=== PATIENT | male | born 1990 | race Caucasian/White ===

== ENCOUNTER → 2016-11-24 | Outpatient (CLI) | payer OTHER ==
--- NOTE | 2016-11-29 10:28 | SLEEPCENT ---
DATE OF PROCEDURE: 11/24/2016 ORDERED BY: Tova Saucedo Nocturnal polysomnography was performed for evaluation of sleep apnea syndrome symptoms and assessment of sleep physiology in this patient with a history of excessive somnolence and snoring. 7 hours and 15 minutes of data were reviewed. There were 419 minutes of sleep identified. Sleep latency was short at 2 minutes Rapid eye movement (REM) latency was short at 58 minutes. Sleep architecture was good. There were 5 REM periods identified. Overall sleep efficiency was 97.3%. The patient's EKG showed a sinus rhythm with an average heart rate of 52 beats per minute. Rate ranged 45-75. EEG showed mild coarsening of background. No focal events. Normal wave forms for awake and sleep were seen. There were only 17 respiratory events identified of 10 seconds in duration or greater for an apnea-hypopnea index within normal limits at 2.4. Patient did display snoring throughout the study. Respiratory related arousals occurred 2.1 times per hour when arousals from snoring were included. There was some limb activity but limb movement arousals were few and oxygen saturations were within normal limits. IMPRESSION: Normal nocturnal polysomnography with snoring.
== END ==
LOC: M SLEEP 19:45
PROVIDERS: ATTEND Nurse Practitioner Adult Health
DX: R06.83 Snoring (principal)

== ENCOUNTER 2017-01-27 19:51 | Outpatient (CLI) | payer OTHER ==
--- NOTE | 2017-01-30 08:22 | SLEEPMSLT ---
DATE OF PROCEDURE: 01/27/2017 REQUESTING PROVIDER: Tova Saucedo NP INTERPRETATION: Nocturnal polysomnography was performed followed by multiple sleep latency testing in this patient with a history of excessive somnolence. For the night study, 7 hours and 30 minutes of data were reviewed. 421 minutes of sleep were identified. Sleep latency on this occasion was 2.5 minutes, very short. Rapid eye movement (REM) latency was normal at 90 minutes. Sleep architecture was reasonably normal with minimal fragmentation. There were four REM periods appreciated. The patient's sleep efficiency was 96%. Electrocardiogram (EKG) showed a sinus rhythm with an average heart rate of 57 beats per minute. Electroencephalogram (EEG) showed normal waveforms for awake and sleep stages. There were only 8 respiratory events identified of 10 seconds in duration or greater for an apnea-hypopnea index of 1.1. Significant snoring was noted, but respiratory related arousals occurred only 1.4 times per hour. There was some limb activity, but arousals from limb events occurred only 2.4 times per hour and remaining measures of sleep physiology were normal. Nocturnal polysomnography was followed by multiple sleep latency testing. Nap opportunities were offered on four occasions at 2 hour intervals. Sleep was appreciated on four out of four nap opportunities with a mean sleep latency of 2.1 minutes. REM sleep was appreciated on two out of four nap opportunities. IMPRESSION: Normal nocturnal polysomnography with snoring, pathologic sleep latency at 2.1 minutes, and sleep onset REM periods demonstrated on two of four occasions. COMMENTS: The above findings are consistent with a clinical diagnosis of narcolepsy. Of note, toxicology screen performed during this test was not available at the time of this dictation to review.
[2017-02-03 15:56] LABS: SUMMARY SEE SEPARATE REPORT
== END 2017-01-28 14:30 | disposition home or self-care (01) ==
LOC: M SLEEP 19:51
PROVIDERS: ATTEND Nurse Practitioner Adult Health
DX: R40.0 Somnolence (principal)

== ENCOUNTER → 2017-02-18 | Outpatient (REF) | payer OTHER | LOC: M LAB REF 17:19 | PROVIDERS: ATTEND Nurse Practitioner Adult Health | DX: G47.419 Narcolepsy without cataplexy (principal) ==

== ENCOUNTER 2018-09-30 16:29 | Emergency (ER) | payer OTHER ==
[2018-09-30] MEDS: ONDANSETRON 4MG/2ML VIAL (J2405) IV (17:34)
[2018-09-30] MEDS: KETOROLAC 30 MG/ML VIAL (J1885) IV (17:34)
[2018-09-30 18:12] LABS: BASO % 0.4 % (0.0-1.0); EOS # 0.2 10^3/uL (0.0-0.50); EOS % 4.1 % (0.0-3.0); HEMATOCRIT 46.7 % (42.0-52.0); HEMOGLOBIN 16.3 g/dl (13.5-17.5); IMMATURE GRANULOCYTE % 0.2 % (0-3.0); LYMPH # 1.7 10^3/uL (1.5-4.5); LYMPH % 29.6 % (24.0-44.0); MEAN CORPUSCULAR HGB CONC 34.9 g/dl (32.0-36.5); MEAN CORPUSCULAR VOLUME 83.1 fl (80.0-96.0); MONO # 0.6 10^3/uL (0.0-0.8); MONO % 9.8 % (0.0-5.0); NEUTROPHILS # 3.1 10^3/uL (1.8-7.7); NEUTROPHILS % 55.9 % (36.0-66.0); RED BLOOD COUNT 5.62 10^6/uL (4.30-6.10); RED CELL DISTRIBUTION WIDTH 12.2 % (11.5-14.5); WHITE BLOOD COUNT 5.6 10^3/uL (4.0-10.0)
[2018-09-30 18:20] LABS: ANION GAP 7 MEQ/L (8-16); BLOOD UREA NITROGEN 14 MG/DL (7-18); CALCIUM LEVEL 8.7 MG/DL (8.5-10.1); CARBON DIOXIDE LEVEL 26 MEQ/L (21-32); CHLORIDE LEVEL 108 MEQ/L (98-107); CK-MB VALUE MASS < 1.0 NG/ML (<3.6); CPK CREATINE PHOSPHOKINASE 121 U/L (39-308); CREATININE FOR GFR 1.11 MG/DL (0.70-1.30); GLOMERULAR FILTRATION RATE > 60.0 (>60); GLUCOSE, FASTING 93 MG/DL (70-100); MB/CK RELATIVE INDEX 0.83 (< OR =4); POTASSIUM SERUM 3.8 MEQ/L (3.5-5.1); SODIUM LEVEL 141 MEQ/L (136-145); TROPONIN I < 0.02 NG/ML (< 0.10)
[2018-09-30 18:31] LABS: D-DIMER QUANT < 270 ng/ml (<500)
[2018-09-30 21:35] LABS: CK-MB VALUE MASS < 1.0 NG/ML (<3.6); CPK CREATINE PHOSPHOKINASE 96 U/L (39-308); MB/CK RELATIVE INDEX 1.04 (< OR =4); TROPONIN I < 0.02 NG/ML (< 0.10)
== END 2018-09-30 21:46 | disposition home or self-care (01) ==
LOC: M ED 16:29
DX: R07.9 Chest pain, unspecified (principal); Z91.89 Other specified personal risk factors, not elsewhere classified; Z91.010 Allergy to peanuts
CPT/HCPCS: J2405

== ENCOUNTER → 2018-11-21 | Outpatient (CLI) | payer OTHER ==
[2018-11-21 11:12] LABS: ALBUMIN 3.9 GM/DL (3.2-5.2); BILIRUBIN,DIRECT 0.2 MG/DL (0.0-0.2); BILIRUBIN,TOTAL 0.8 MG/DL (0.2-1.0)
[2018-11-24 08:06] LABS: IGASUB3 92.7 mg/dL (13.4-97.9)
== END ==
LOC: M LAB 10:13
PROVIDERS: ATTEND Internal Medicine Gastroenterology
DX: R19.7 Diarrhea, unspecified (principal)

== ENCOUNTER 2018-12-28 07:29 | Day surgery (SDC) | payer OTHER ==
[~2018-12-28] VITALS: Ht 180.3 cm; Wt 94.3 kg
[~2018-12-28 07:29] MED LIST: LIDOCAINE 2% INJ 100 MG/5 ML SDV (FOR ANES.) As Ordered ONE; OMEP40CA2 PO; PEPT262T2 PO; PROPOFOL 200 MG/20 ML VIAL As Ordered ONE; SIMETHICONE 40MG/0.6ML DROPS 30ML As Ordered ONE
[2018-12-28] MEDS ORDERED: PROPOFOL 200 MG/20 ML VIAL As Ordered ONE (07:49)
--- NOTE | 2018-12-28 08:08 | ROOR ---
Patient Name: Stef Ware Procedure Date: 12/28/2018 7:32 AM Date of : 1990 Age: 28 Room: [facility] Gender: Male Note Status: Finalized Procedure: Colonoscopy Indications: Chronic diarrhea Providers: Efren Charles MD Referring MD: James Lazar MD Requesting Provider: Medicines: Monitored Anesthesia Care Complications: No immediate complications. Procedure: Pre-Anesthesia Assessment: - Prior to the procedure, a History and Physical was performed, and patient medications and allergies were reviewed. The patient is competent. The risks and benefits of the procedure and the sedation options and risks were discussed with the patient. All questions were answered and informed consent was obtained. Patient identification and proposed procedure were verified by the physician, the nurse and the anesthesiologist in the procedure room. Respiratory Examination: clear to auscultation. Prophylactic Antibiotics: The patient does not require prophylactic antibiotics. Prior Anticoagulants: The patient has taken no previous anticoagulant or antiplatelet agents. ASA Grade Assessment: II - A patient with mild systemic disease. After reviewing the risks and benefits, the patient was deemed in satisfactory condition to undergo the procedure. The anesthesia plan was to use monitored anesthesia care (MAC). Immediately prior to administration of medications, the patient was re-assessed for adequacy to receive sedatives. The heart rate, respiratory rate, oxygen saturations, blood pressure, adequacy of pulmonary ventilation, and response to care were monitored throughout the procedure. The physical status of the patient was re-assessed after the procedure. The Colonoscope was introduced through the anus and advanced to the terminal ileum, with identification of the appendiceal orifice and IC valve. The colonoscopy was performed without difficulty. The patient tolerated the procedure well. The quality of the bowel preparation was good. The terminal ileum, ileocecal valve, appendiceal orifice, and rectum were photographed. Scope insertion time was 4 minutes. Scope withdrawal time was 10 minutes. The total duration of the procedure was 14 minutes. Findings: The perianal and digital rectal examinations were normal. The terminal ileum appeared normal. Multiple small and large-mouthed diverticula were found from sigmoid to descending colon. There was no evidence of diverticular bleeding. Normal mucosa was found from descending colon to cecum. Biopsies for histology were taken with a cold forceps from the right colon, left colon and transverse colon for evaluation of microscopic colitis. Verification of patient identification for the specimen was done by the physician and nurse using the patient's name, date and medical record number. Estimated blood loss was minimal. Diffuse mild inflammation characterized by erythema, granularity and loss of vascularity was found in the recto-sigmoid colon. Biopsies were taken with a cold forceps for histology. The retroflexed view of the distal rectum and anal verge was normal and showed no anal or rectal abnormalities. Impression: - The examined portion of the ileum was normal. - Moderate diverticulosis from sigmoid to descending colon. There was no evidence of diverticular bleeding. - Normal mucosa from descending to cecum. Biopsied. - Diffuse mild inflammation was found in the recto-sigmoid colon secondary to colitis. Biopsied. - The distal rectum and anal verge are normal on retroflexion view. Recommendation: - Patient has a contact number available for emergencies. The signs and symptoms of potential delayed complications were discussed with the patient. Return to normal activities tomorrow. Written discharge instructions were provided to the patient. - High fiber diet. - Continue present medications. - Await pathology results. - Repeat colonoscopy at age 48 for screening purposes. - Based on the biopsy results you will receive a phone call from GI clinic in 2-3 weeks to review the pathology results AND/OR your results will be faxed to your Primary care physician. - Return to primary care physician. Efren Charles MD Efren Charles MD 12/28/2018 8:07:26 AM This report has been signed electronically. Number of Addenda: 0 Note Initiated On: 12/28/2018 7:32 AM Estimated Blood Loss: Estimated blood loss was minimal.
[2018-12-28 08:20] VITALS: BP 134/85
== END 2018-12-28 08:30 | disposition home or self-care (01) ==
LOC: M OPP 07:29
PROVIDERS: ATTEND Internal Medicine Gastroenterology
DX: K52.9 Noninfective gastroenteritis and colitis, unspecified (principal); K57.30 Diverticulosis of large intestine without perforation or abscess without bleeding; G47.419 Narcolepsy without cataplexy; F41.9 Anxiety disorder, unspecified; J45.909 Unspecified asthma, uncomplicated; Z88.3 Allergy status to other anti-infective agents; Z91.010 Allergy to peanuts; Z80.42 Family history of malignant neoplasm of prostate; Z90.49 Acquired absence of other specified parts of digestive tract

== ENCOUNTER → 2019-06-16 | Outpatient (CLI) | payer OTHER ==
[~2019-06-16] MED LIST changes: -LIDOCAINE 2% INJ 100 MG/5 ML SDV (FOR ANES.) As Ordered ONE; -OMEP40CA2 PO; +OMEP40CA97 PO; -PROPOFOL 200 MG/20 ML VIAL As Ordered ONE; -SIMETHICONE 40MG/0.6ML DROPS 30ML As Ordered ONE
[2019-06-16 11:33] LABS: BASO % 0.4 % (0.0-1.0); EOS # 0.3 10^3/uL (0.0-0.50); EOS % 3.9 % (0.0-3.0); HEMATOCRIT 51.2 % (42.0-52.0); HEMOGLOBIN 17.2 g/dl (13.5-17.5); LYMPH # 1.7 10^3/uL (1.5-4.5); LYMPH % 20.9 % (24.0-44.0); MEAN CORPUSCULAR HEMOGLOBIN 28.5 pg (27.0-33.0); MEAN CORPUSCULAR HGB CONC 33.6 g/dl (32.0-36.5); MEAN CORPUSCULAR VOLUME 84.8 fl (80.0-96.0); MONO # 0.7 10^3/uL (0.0-0.8); MONO % 8.4 % (0.0-5.0); NEUTROPHILS # 5.4 10^3/uL (1.8-7.7); NEUTROPHILS % 66.3 % (36.0-66.0); PLATELET COUNT, AUTOMATED 252 10^3/uL (150-450); RED BLOOD COUNT 6.04 10^6/uL (4.30-6.10); WHITE BLOOD COUNT 8.2 10^3/uL (4.0-10.0)
[2019-06-16 11:45] LABS: BILIRUBIN,DIRECT 0.1 MG/DL (0.0-0.2); BILIRUBIN,TOTAL 0.6 MG/DL (0.2-1.0); TOTAL PROTEIN 7.5 GM/DL (6.4-8.2)
[2019-06-16 12:10] LABS: ERYTHROCYTE SEDIMENTATION RATE 1 mm/hr (0-15)
== END ==
LOC: M LAB 10:12
PROVIDERS: ATTEND Internal Medicine Gastroenterology
DX: R19.7 Diarrhea, unspecified (principal); K52.3 Indeterminate colitis

== ENCOUNTER → 2019-12-21 | Outpatient (REF) | payer OTHER | LOC: M LAB REF 10:36 | PROVIDERS: ATTEND Physician Assistant Medical | DX: J02.9 Acute pharyngitis, unspecified (principal) ==